=== PATIENT | male | born 1990 | race Caucasian/White ===

== ENCOUNTER 2020-11-23 00:50 | Emergency (ER) | payer OTHER ==
[~2020-11-23] VITALS: Ht 175.3 cm; Wt 77.3 kg
[2020-11-23 00:52] VITALS: BP 115/73
--- NOTE | 2020-11-23 01:04 | NUR ---
PT denies any s/s or pain. Pt states that he is thirsty and is requesting water.
== END 2020-11-23 02:38 ==
LOC: EEVIPCON 00:50 → ER 00:50
DX: T40.411A Poisoning by fentanyl or fentanyl analogs, accidental (unintentional), initial encounter (principal); F15.90 Other stimulant use, unspecified, uncomplicated; Y92.89 Other specified places as the place of occurrence of the external cause
CPT/HCPCS: 93005; 99283